=== PATIENT | female | born 1980 | race Caucasian/White ===

== ENCOUNTER 2019-11-20 11:22 | Emergency (ER) | payer OTHER, BC ==
[2019-11-20] MEDS ORDERED: METHOCARBAMOL 750 MG TABLET PO ONE (12:57)
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
[2019-11-20] MEDS ORDERED: METOCLOPRAMIDE HCL 10 MG TABLET PO ONE (13:38)
[2019-11-20] MEDS ORDERED: KETOROLAC TROMETHAMINE 60 MG/2 ML SDV IM ONE (13:38)
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
[2019-11-20 14:40] VITALS: BP 110/64
== END 2019-11-20 14:40 | disposition home or self-care (01) ==
LOC: ER 11:22
DX: S06.0X0A Concussion without loss of consciousness, initial encounter (principal); R51 Headache; R11.2 Nausea with vomiting, unspecified; M62.81 Muscle weakness (generalized); R19.7 Diarrhea, unspecified; R42 Dizziness and giddiness; V87.7XXA Person injured in collision between other specified motor vehicles (traffic), initial encounter; Z88.8 Allergy status to other drugs, medicaments and biological substances; Z79.899 Other long term (current) drug therapy
CPT/HCPCS: 99285; 96372; 70450; J1885; J3490